=== PATIENT | female | born 1980 | race Caucasian/White ===

== ENCOUNTER 2022-03-19 13:41 | Emergency (ER) | payer BC, OTHER ==
--- OUTSIDE RECORDS SUMMARY | 2022-03-19 13:47 | XMS REPORT | Continuity of Care Document ---
:1980 Author Organization [facility] t Address [address] [place] [address] Care Team Providers Name Role Phone Demarcus Soler DO Primary Care Physician Sachi SCHMITZ, Holley Mejia Attending Clinician MAGGIE Attending Clinician Unavailable Maxine Attending Clinician Unavailable MAGGIE Admitting Clinician Unavailable Shaheen_Roger Admitting Clinician Unavailable Payers Payer Name Policy Type Policy Number Effective Date Expiration Date S ource [place] [id number] 2019 00:00:00 AETNA [id number] 2018 00:00:00 Problems Condition Condition Condition Status Onset Resolution Last Treating Co mments Source Name Details Category Date Date Treatment Clinician Date Depressive Depressive Problem Active [facility] disorder Disorder 6-11 da 00:00: Medical 00 Group History of History of Problem Active [facility] endometrio Endometrio 6-11 da sis sis 00:00: Medical 00 Group No known No known Disease Metho di active active st problems problems Hospit a l Allergies, Adverse Reactions, Alerts Allergy Allergy Status Severity Reaction(s) Onset Inactive Treating Comm ents Source Name Type Date Date Clinician Gluten Propensi Active Other (See Autoimmun M ethodi ty to Comments) 2-[address] adverse 00:00: Hospita reaction 00 l s to drug Codeine Propensi Active [facility] ty to 9-15 st adverse 00:00: Hospita reaction 00 l s to drug Codeine Allergy Active [facility] Gluten Allergy Active [facility] Family History Family Member Diagnosis Comments Start Date Stop Date Source Other [facility] Hy[facility] Natural mother Diabetes [facility] Natural mother Hypertension [facility] Social History Social Habit Start Date Stop Date Quantity Comments Source Alcohol intake 2021-11-14 2021-11-14 Current [facility] 00:00:00 00:00:00 non-drinker of Hospital alcohol (finding) Tobacco use and 2016-02-09 2016-02-09 Smokeless tobacco [facility] exposure 00:00:00 00:00:00 non-user Hospital Sex Assigned At [birth year] [facility] 00:[facility] 00:00:00 Hospital Smoking Status Start Date Stop Date Source Never smoked tobacco [facility] Medications Ordered Filled Start Stop Current Ordering Indication Dosage Frequency Signature Comments Components Source Medication Medication Date Date Medication? Clinician (SIG) Name Name meloxicam 2021- No 15mg QD Take 1 Metho di (Mobic) 15 11-14-20 tablet (15 st mg tablet 00:00: 04:59 mg total) Ho spita 00 :00 by mouth l daily for 90 days. methylPREDN 2021- No follow Met hodi ISolone 11-14- package st (MEDROL 00:00: 04:59 directions Hos manuel DOSEPAK) 4 00 :00 l mg tablet meloxicam 2021- No 15mg QD Take 1 Metho di (Mobic) 15 -21 07-26 tablet (15 st mg tablet 00:00: 05:59 mg total) [facility] 00 :00 by mouth l daily. sertraline Yes [facility] (ZOLOFT) 50 7-18 st MG tablet 00:00: Hospita 00 l sertraline sertraline No sertraline [facility] 100 mg 100 mg 100 mg da tablet Take tablet Take tablet Medical 1 tablet 1 tablet Take 1 Group every day every day tablet by oral by oral every day route as route as by oral directed directed route as for 30 for 30 directed days. days. for 30 days. Vital Signs Vital Name Observation Time Observation Value Comments Source BP Diastolic 2020-02-08 00:00:00 71 mm[Hg] [facility] Height 2020-02-08 00:00:00 67 [in_i] [facility] BMI (Body Mass 2020-02-08 00:00:00 29.6 kg/m2 [facility] Medical Index) Group BP Systolic 2020-02-08 00:00:00 103 mm[Hg] [facility] Body Weight 2020-02-08 00:00:00 188.8 [lb_av] [facility] BP Diastolic 2020-01-18 00:00:00 66 mm[Hg] [facility] Height 2020-01-18 00:00:00 67 [in_i] [facility] BMI (Body Mass 2020-01-18 00:00:00 29 kg/m2 [facility] Medical Index) Group BP Systolic 2020-01-18 00:00:00 107 mm[Hg] [facility] Body Weight 2020-01-18 00:00:00 185 [lb_av] [facility] BMI (Body Mass 2019-12-28 00:00:00 28.7 kg/m2 [facility] Medical Index) Group BP Systolic 2019-12-28 00:00:00 106 mm[Hg] [facility] Body Weight 2019-12-28 00:00:00 183 [lb_av] [facility] BP Diastolic 2019-12-28 00:00:00 66 mm[Hg] [facility] Height 2019-12-28 00:00:00 67 [in_i] [facility] BP Diastolic 2019-12-01 00:00:00 71 mm[Hg] [facility] Height 2019-12-01 00:00:00 67 [in_i] [facility] BMI (Body Mass 2019-12-01 00:00:00 26.3 kg/m2 [facility] Medical Index) Group BP Systolic 2019-12-01 00:00:00 114 mm[Hg] [facility] Body Weight 2019-12-01 00:00:00 167.7 [lb_av] [facility] BP Diastolic 2018-12-16 00:00:00 70 mm[Hg] [facility] Height 2018-12-16 00:00:00 67 [in_i] [facility] BMI (Body Mass 2018-12-16 00:00:00 28.8 kg/m2 [facility] Medical Index) Group BP Systolic 2018-12-16 00:00:00 104 mm[Hg] [facility] Body Weight 2018-12-16 00:00:00 184 [lb_av] [facility] BP Diastolic 2018-11-04 00:00:00 71 mm[Hg] [facility] Height 2018-11-04 00:00:00 67 [in_i] [facility] BMI (Body Mass 2018-11-04 00:00:00 28 kg/m2 [facility] Medical Index) Group BP Systolic 2018-11-04 00:00:00 114 mm[Hg] [facility] Body Weight 2018-11-04 00:00:00 179 [facility]lb_av] [facility] Body height 2021-11-14 20:23:00 170.2 cm [facility] Body weight 2021-11-14 20:23:00 92.987 kg [facility] BMI 2021-11-14 20:23:00 32.11 kg/m2 [facility] Procedures Procedure Date / Time Performed Performing Clinician Sour e XR KNEE 4+ VW RIGHT 2021-11-14 20:24:49 Holley Karimi [facility], transvaginal 2019-12-01 00:00:00 [facility], transvaginal 2018-11-04 00:00:00 [facility] Tubal Ligation [facility]end[facility] Dilation and Curettage [facility] Plan of Care Planned Activity Planned Date Details Comments Source Future Scheduled 2022-03-19 HEPATITIS B [facility] Test 13:46:35 VACCINES (1 of 3 - 3-dose series) [code = HEPATITIS B VACCINES (1 of 3 - 3-dose series)] Future Scheduled 2022-03-19 COVID[facility] 13:46:35 (#1) [code = COVID-19 VACCINE (#1)] Future Scheduled 2022-03-19 Hepatitis C [facility] Test 13:46:35 screening (procedure) [code = 827294229] Future Scheduled 2022-03-19 Screening for [facility] Test 13:46:35 malignant neoplasm of cervix (procedure) [code = 542285961] Future Scheduled 2022-03-19 BREAST CANCER [facility] Test 13:46:35 SCREENING [code = BREAST CANCER SCREENING] Future Scheduled 2022-03-19 INFLUENZA VACCINE [facility] Test 13:46:35 [code = INFLUENZA VACCINE] Encounters Start End Encounter Admission Attending Care Care Encounter Source Date/Time Date/Time Type Type Clinicians Facility Department ID 2021-11-14 2021-11-14 Office Rich, .2.840.1 [id number] [facility] 15:30:00 15:39:08 Visit Holley Mejia 86907.1.[address] 3.430.2.7 Hospit a .3.608479 l .8 2021-11-14 2021-11-14 Travel 1.2.840.1 1.2.733.545 [id number] [facility] 00:00:00 00:00:[address] 3.430.2.7 0.2.7.3.698 Ho spita .3.959904 084.8 l .8 2021-11-14 2021-11-14 Outpatient [facility] [id number] [place] 00:00:00 00:00:00 [place] [address] 2021-11-14 2021-11-14 Outpatient [facility] [id number] [place] 00:00:00 00:00:00 [place] [address] 2021-10-20 2021-10-20 Travel 1.2.840.1 1.2.709.933 [id number] [facility] 00:00:00 00:00:[address] 3.430.2.7 0.2.7.3.698 Ho spita .3.271997 084.8 l .8 2021-06-212021-06-21 Outpatient [facility] 970 [place] 08:13:00 08:13:00 SSA [facility] Program 2021-01-04 2021-01-04 Outpatient [facility] [id number] [place] 05:55:00 05:55:00 [facility] 2020-11-25 2020-11-25 Outpatient [facility] [id number] [place] 03:34:00 03:34:00 0702 [facility] 2020-11-16 2020-11-16 Outpatient [facility] [id number] [place] 01:38:00 01:38:00 0623 [facility] 2020-10-13 2020-10-13 Outpatient [facility] [id number] [place] 01:03:00 01:03:00 0520 [facility] 2020-08-09 2020-08-09 Outpatient [facility] [id number] 00:00:00 00:00:00 [place] [address] 2020-07-21 2020-07-21 Outpatient [facility] [id number] [address] [place] [address] 00:00:00 00:00:00 H[facility] [address] 2020-05-02 2020-05-02 Outpatient [facility] [id number] [place] 01:03:00 01:03:00 1207 [facility] 2020-04-13 2020-04-13 Outpatient [facility] [id number] [place] 02:43:00 02:43:00 1118 [facility] 2020-04-13 2020-04-13 Outpatient [facility] [id number] [place] 02:43:00 02:43:00 1126 [facility] 2020-03-29 2020-03-29 Outpatient [facility] MMG [id number] [place] 03:42:00 03:42:00 1104 [facility] 2020-03-28 2020-03-28 Outpatient [facility] MMG [id number] [place] 01:04:00 01:04:00 1102 [facility] 2020-02-23 2020-02-23 Outpatient G[facility] MMG [id number] [place] 10:32:00 10:32:00 1008 [facility] 2020-02-21 2020-02-21 Outpatient G_[facility] MMG [id number] [place] 11:02:00 11:02:00 0927 [facility] 2020-02-10 2020-02-10 Outpatient [facility] MMG [id number] [place] 01:07:00 01:07:00 0921 Medical Group 2020-02-08 2020-02-08 Outpatient [facility] [id number] [place] 11:44:00 11:44:00 0914 Medical Group 2020-02-08 2020-02-08 Vandana MMG [place] - [id number] [facility] 00:00:00 00:00:00 Olvin Lundy [facility] shane MD: [address] [address] , Ph. [phone] 2020-02-02 2020-02-02 Outpatient [facility] MMG [id number] [place] 10:54:00 10:54:00 0908 Medical Group 2020-01-18 2020-01-18 Outpatient [facility] MMG [id number] [place] 07:27:00 07:27:00 0824 Medical Group 2020-01-18 2020-01-18 Vandana MMG [place] - [id number] [facility] 00:00:00 00:00:00 Shira Cerna Medicsanty lynn MD: [address] [address] , Ph. [phone] 2020-01-13 2020-01-13 Outpatient [facility] MMG [id number] [place] 10:02:00 10:02:00 0819 Medical Group 2019-12-28 2019-12-28 Outpatient [facility] MM[facility] MMG [id number] [place] 11:09:00 11:09:00 0803 [facility] 2019-12-28 2019-12-28 Vandana MM [place] - [id number] [facility] 00:00:00 00:00:00 Shira Cerna MD: [address] [address] , Ph. [phone] 2019-12-21 2019-12-21 Outpatient [facility] MMG [id number] [place] 11:09:00 11:09:00 0727 [facility] 2019-12-01 2019-12-01 Outpatient G_[facility] MMG MMG [id number] [place] 03:33:00 03:33:00 0707 [facility] 2019-12-01 2019-12-01 Vandana MM [place] - [id number] [facility] 00:00:00 00:00:00 Shira Cerna MD: [address] [address] , Ph. [phone] 2019-04-27 2019-04-27 Outpatient G_[facility] MMG MMG [id number] 2019 [place] 11:07:00 11:07:00 0706 [facility] 2018-12-16 2018-12-16 Vandana MM [place] - [id number] [facility] 00:00:00 00:00:00 Shira Cerna MD: [address] [address] , Ph. [phone] 2018-11-04 2018-11-04 Vandana MM [place] - [id number] [facility] 00:00:00 00:00:00 Shira Cerna MD: [address] [address] , Ph. [phone] Results Test Description Test Time Test Comments Results Result Comments Source mlevelv 2019-12-31 06:00:00 Test Item Value Reference Range Interpretation Comme nts Surgical pathology study (test code = 34031-4) see separate patholo gy report. [employer] W Auto Differential panel - [id number] 09:20:00 Test Item Value Reference Range Interpretation Comments white blood count (test code = 5.3 K/uL 4.0-11.5 white blood count) red blood count (test code = red 4.45 M/uL 3.80-5.20 blood count) hemoglobin (test code = 13.9 g/dL 10.5-15.7 hemoglobin) hematocrit (test code = 41.1 % 34.0-50.0 hematocrit) MCV [Entitic volume] (test code = 92.4 fL 86-100 13407-6) mean corpuscular hemoglobin (test 31.2 pg 26.2-33.4 code = mean corpuscular hemoglobin) mean corpuscular HGB conc (test 33.8 g/dL 30-34 code = mean corpuscular HGB conc) red cell distribution width (test 12.3 % 12.0-15.5 code = red cell distribution width) platelet count (test code = 222 K/uL 165-450 platelet count) mean platelet volume (test code = 10.2 fL 9.4-12.6 mean platelet volume) Segmented neutrophils/100 65.0 % 44.4-80.1 leukocytes in Blood (test code = 71788-8) Immature granulocytes [#/volume] 0.0 K/uL 0.0-0.03 in Blood (test code = 15876-8) lymphocyte% (test code = 25.9 % 10.0-50.0 lymphocyte%) mono % (test code = mono %) 7.2 % 3.6-12.0 eos % (test code = eos %) 1.3 % 0.0-5.4 Basophils/100 leukocytes in 0.4 % 0.1-1.2 Unspecified specimen (test code = 72833-2) Band form neutrophils [#/volume] 3.42 K/uL 1.56-6.13 in Blood (test code = 98734-0) Lymphocytes [#/volume] in 1.4 K/uL 1.18-3.74 Unspecified specimen by Automated count (test code = 40979-7) mono # (test code = mono #) 0.38 K/uL 0.24-0.86 eos # (test code = eos #) 0.07 K/uL 0.04-0.36 basophil # (test code = basophil 0.02 K/uL 0.01-0.08 #) NRBC% (test code = NRBC%) 0 /100 WBC 0-0.2 NRBC# (test code = NRBC#) 0 K/uL [facility] unspecified - [id number] 09:20:00NeutrophilsBandLymphocyteMonocyteNucleated Red Blood CellPlatelet EstimateMataBaptist Memorial Hospitalpap, LB + [id number] 00:00:00 Test Item Value Reference Range Interpretation Comments HPV type-detect 3.0 by next gen not detected sequencing (reflex to HPV-16 risk assessment status) (test code = HPV type-detect 3.0 by next gen sequencing (reflex to HPV-16 risk assessment status)) General categories normal [interpretation] of Cervical or vaginal smear or scraping by Cyto stain (test code = 43163-6) [facility]
[2022-03-19] MEDS ORDERED: IPRATROPIUM BROM 0.5MG/2.5ML ONE (14:35)
[2022-03-19] MEDS ORDERED: ALBUTEROL 2.5 MG/3 ML NEB SOL ONE (14:35)
[2022-03-19] MEDS ORDERED: BUDESONIDE 0.25 MG/2 ML NEB IH ONE (15:00)
[2022-03-19 15:16] LABS: Absolute Lymphocytes (CBC) 2.7 K/uL (0.7-4.9); Hematocrit 40.2 % (36.0-45.0); Lymphocytes % 38.2 % (15.3-44.8); MCV 91.1 fL (80-100); MPV 7.8 fL (7.6-11.3); RBC Red Blood Cell Count 4.42 M/uL (3.86-4.86)
[2022-03-19 15:24] LABS: Potassium 3.1 mmol/L (3.5-5.1)
--- NOTE | 2022-03-19 15:54 | RAD REPORT ---
EXAM DESCRIPTION: Regino Wallace (2 Views)03/19/2022 3:48 pm CLINICAL HISTORY: Cough COMPARISON: None FINDINGS: The lungs appear clear of acute infiltrate. The heart is normal size IMPRESSION: No acute abnormalities displayed
--- NOTE | 2022-03-19 16:21 | ER ---
Nurse's Notes [facility] Name: Ana Patel Age: 41 yrs Sex: Female : 1980 Arrival Date: 03/19/2022 Time: 13:46 Bed 10 Private MD: Demarcus Soler Diagnosis: Cough Presentation: 03/19 14:13 Chief complaint: Patient states: productive cough that started about five weeks ago. kr3 went to urgent care 2 weeks ago and was given antibiotics and steroids that she completed. She is still coughing with congestion and also becomes SOB during coughing fits. Coronavirus screen: Vaccine status: Patient reports receiving the 2nd dose of the covid vaccine. Client denies travel out of the [place] in the last 14 days. Ebola Screen: Patient denies travel to an Ebola-affected area in the 21 days before illness onset. Initial Sepsis Screen: Does the patient meet any 2 criteria? No. Patient's initial sepsis screen is negative. Does the patient have a suspected source of infection? Yes: Productive cough/pneumonia. Risk Assessment: Do you want to hurt yourself or someone else? Patient reports no desire to harm self or others. Onset of symptoms was February 12, 2022. 14:13 Method Of Arrival: Ambulatory kr3 14:13 Acuity: JOSE 4 kr3 Triage Assessment: 14:21 General: Appears in no apparent distress. uncomfortable, Behavior is calm, cooperative, kr3 appropriate for age. Pain:. 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 - Social history:: Smoking status: Patient denies any tobacco usage or history of. Screenin:34 Abuse screen: Denies threats or abuse. Nutritional screening: No deficits noted. kr3 Tuberculosis screening: No symptoms or risk factors identified. Fall Risk IV access (20 points). Total Sullivan Fall Scale indicates No Risk (0-24 pts). Assessment: 15:15 Reassessment: No changes from previously documented assessment. Patient and/or family kr3 updated on plan of care and expected duration. Pain level reassessed. Patient is alert, oriented x 3, equal unlabored respirations, skin warm/dry/pink. 16:32 Reassessment: No changes from previously documented assessment. Patient and/or family kr3 updated on plan of care and expected duration. Pain level reassessed. Patient is alert, oriented x 3, equal unlabored respirations, skin warm/dry/pink. 16:33 General:. kr3 Vital Signs: 14:13 BP 132 / 59; Pulse 79; Resp 18; Temp 98.0; Pulse Ox 100% ; Weight 92.99 kg; Height 5 kr3 ft. 7 in. (170.18 cm); Pain 0/10; 15:15 BP 130 / 72; Pulse 101; Resp 20; Pulse Ox 100% on R/A; kr3 16:32 BP 126 / 65; Pulse 91; Resp 18; Pulse Ox 98% on R/A; kr3 14:13 Body Mass Index 32.11 (92.99 kg, 170.18 cm) kr3 ED Course: 13:46 Patient arrived in ED. rg4 13:46 Demarcus Soler DO is Private Physician. rg4 14:02 Ran Knox is PHCP. jl9 14:02 Mao Lunsford MD is Attending Physician. jl9 14:05 Diane Herrera, ADINA is Primary Nurse. kr3 14:15 Arm band placed on right wrist. Patient placed in an exam room, on a stretcher. kr3 14:17 Triage completed. kr3 14:30 Bed in low position. Call light in reach. Side rails up X 1. kr3 15:05 CBC with Diff Sent. zm 15:05 BMP Sent. zm 15:05 SARS-COV-2 RT PCR (Document "Date of Onset" if Symptomatic) Sent. zm 15:05 Flu Sent. zm 15:05 Inserted saline lock: 22 gauge in right antecubital area, using aseptic technique. zm Blood collected. 15:50 XRAY Chest Pa And Lat (2 Views) In Process Unspecified. EDMS 16:34 No provider procedures requiring assistance completed. IV discontinued, intact, kr3 bleeding controlled, No redness/swelling at site. Pressure dressing applied. Administered Medications: 14:39 Drug: Albuterol - atroVENT (ipratropium) (3:1) (2.5 mg - 0.5 mg) 6 ml Route: Nebulizer; kr3 16:21 Follow up: Response: No adverse reaction kr3 15:31 Drug: Pulmicort 0.25 mg/2 mL 0.25 mg Route: Inhalation; kr3 16:21 Follow up: Response: No adverse reaction kr3 16:26 Drug: Potassium Effervescent Tablet 50 mEq Route: PO; kr3 16:36 Follow up: Response: No adverse reaction kr3 Medication: 16:35 VIS not applicable for this client. kr3 Outcome: 16:21 Discharge ordered by MD. cespedes 16:34 Discharged to home ambulatory. kr3 16:34 Condition: stable 16:34 Discharge instructions given to patient, Instructed on discharge instructions, follow up and referral plans. medication usage, Demonstrated understanding of instructions, follow-up care, medications, Prescriptions given X 2. 16:36 Patient left the ED. kr3 Signatures: Dispatcher [employer] Miroslava Persaud Zaina zm Linares, John jl9 Diane Herrera RN RN kr3 Corrections: (The following items were deleted from the chart) 14:21 14:17 PMHx: hysterectomy; kr3 kr3 14:21 14:17 PMHx: cholecestomy; kr3 kr3 14:21 14:17 PMHx: cholecystectomy; kr3 kr3
--- NOTE | 2022-03-19 16:21 | EDPHYS ---
Physician Documentation [facility] Name: Ana Patel Age: 41 yrs Sex: Female : 1980 Arrival Date: 03/19/2022 Time: 13:46 Bed 10 Private MD: Demarcus Soelr ED Physician Mao Lunsford HPI: 03/19 16:19 This 41 yrs old Female presents to ER via Ambulatory with complaints of jl9 Cough. Patient reports finishing a course of abx a couple of weeks ago but she still has an intermittent cough. . 16:19 The patient or guardian reports cough. Onset: The symptoms/episode began/occurred 5 jl9 week(s) ago. Modifying factors: The symptoms are alleviated by nothing, the symptoms are aggravated by nothing. The patient has experienced a previous episode. 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 - Social history:: Smoking status: Patient denies any tobacco usage or history of. ROS: 16:19 Constitutional: Negative for fever, chills, and weight loss, Eyes: Negative for injury, jl9 pain, redness, and discharge, ENT: Negative for injury, pain, and discharge, Neck: Negative for injury, pain, and swelling, Cardiovascular: Negative for chest pain, palpitations, and edema. 16:19 Abdomen/GI: Negative for abdominal pain, nausea, vomiting, diarrhea, and constipation, Back: Negative for injury and pain, : Negative for injury, bleeding, discharge, and swelling, MS/Extremity: Negative for injury and deformity, Skin: Negative for injury, rash, and discoloration, Neuro: Negative for headache, weakness, numbness, tingling, and seizure, Psych: Negative for depression, anxiety, suicide ideation, homicidal ideation, and hallucinations, Allergy/Immunology: Negative for hives, rash, and allergies, Endocrine: Negative for neck swelling, polydipsia, polyuria, polyphagia, and marked weight changes, Hematologic/Lymphatic: Negative for swollen nodes, abnormal bleeding, and unusual bruising. 16:19 Respiratory: Positive for cough. Exam: 16:20 Constitutional: This is a well developed, well nourished patient who is awake, alert, jl9 and in no acute distress. Head/Face: Normocephalic, atraumatic. Eyes: Pupils equal round and reactive to light, extra-ocular motions intact. Lids and lashes normal. Conjunctiva and sclera are non-icteric and not injected. Cornea within normal limits. Periorbital areas with no swelling, redness, or edema. ENT: Mucous membranes moist. Neck: Trachea midline, no thyromegaly or masses palpated, and no cervical lymphadenopathy. Supple, full range of motion without nuchal rigidity, or vertebral point tenderness. No Meningismus. Chest/axilla: Normal chest wall appearance and motion. Nontender with no deformity. No lesions are appreciated. Cardiovascular: Regular rate and rhythm with a normal S1 and S2. No gallops, murmurs, or rubs. Normal PMI, no JVD. No pulse deficits. 16:20 Abdomen/GI: Soft, non-tender, with normal bowel sounds. No distension or tympany. No guarding or rebound. No evidence of tenderness throughout. Back: No spinal tenderness. No costovertebral tenderness. Full range of motion. Skin: Warm, dry with normal turgor. Normal color with no rashes, no lesions, and no evidence of cellulitis. MS/ Extremity: Pulses equal, no cyanosis. Neurovascular intact. Full, normal range of motion. Neuro: Awake and alert, GCS 15, oriented to person, place, time, and situation. Cranial nerves II-XII grossly intact. Motor strength 5/5 in all extremities. Sensory grossly intact. Cerebellar exam normal. Normal gait. Psych: Awake, alert, with orientation to person, place and time. Behavior, mood, and affect are within normal limits. 16:20 Respiratory: mild respiratory distress is noted, Respirations: normal, Breath sounds: bronchial sounds. Vital Signs: 14:13 BP 132 / 59; Pulse 79; Resp 18; Temp 98.0; Pulse Ox 100% ; Weight 92.99 kg; Height 5 kr3 ft. 7 in. (170.18 cm); Pain 0/10; 15:15 BP 130 / 72; Pulse 101; Resp 20; Pulse Ox 100% on R/A; kr3 16:32 BP 126 / 65; Pulse 91; Resp 18; Pulse Ox 98% on R/A; kr3 14:13 Body Mass Index 32.11 (92.99 kg, 170.18 cm) kr3 MDM: 14:06 Patient medically screened. jl9 16:20 Differential Diagnosis: Bronchitis Influenza Upper Respiratory Infection. Data jl9 reviewed: vital signs, nurses notes. Counseling: I had a detailed discussion with the patient and/or guardian regarding: the historical points, exam findings, and any diagnostic results supporting the discharge/admit diagnosis, radiology results, the need for outpatient follow up, to return to the emergency department if symptoms worsen or persist or if there are any questions or concerns that arise at home. Response to treatment: the patient's symptoms have markedly improved after treatment. 03/19 14:03 Order name: Flu; Complete Time: 15:21 03/19 14:03 Order name: SARS-COV-2 RT PCR (Document "Date of Onset" if Symptomatic); Complete Time: jl9 16:16 03/19 14:22 Order name: XRAY Chest Pa And Lat (2 Views); Complete Time: 15:58 9 03/19 14:48 Order name: BMP; Complete Time: 15:58 9 03/19 14:48 Order name: CBC with Diff; Complete Time: 15:21 9 03/19 14:48 Order name: IV Saline Lock; Complete Time: 15:05 jl9 Administered Medications: 14:39 Drug: Albuterol - atroVENT (ipratropium) (3:1) (2.5 mg - 0.5 mg) 6 ml Route: Nebulizer; kr3 16:21 Follow up: Response: No adverse reaction kr3 15:31 Drug: Pulmicort 0.25 mg/2 mL 0.25 mg Route: Inhalation; kr3 16:21 Follow up: Response: No adverse reaction kr3 16:26 Drug: Potassium Effervescent Tablet 50 mEq Route: PO; kr3 16:36 Follow up: Response: No adverse reaction kr3 Disposition Summary: 03/19/22 16:21 Discharge Ordered Location: Home jl9 Condition: Stable jl9 Diagnosis - Cough jl9 Followup: jl9 - With: Private Physician - When: 1 - 2 days - Reason: Recheck today's complaints, Continuance of care, Re-evaluation by your physician Discharge Instructions: - Discharge Summary Sheet jl9 - Cough, Adult, Otsz-[id number] jl9 Forms: - Medication Reconciliation Form jl9 - Thank You Letter jl9 - Antibiotic Education jl9 - Prescription Opioid Use jl9 Prescriptions: - albuterol sulfate 90 mcg/actuation Inhalation HFA aerosol inhaler - inhale 2 puff by INHALATION route every 6 hours As needed; 18 gram; Refills: 0, jl9 Product Selection Permitted - Medrol (Alexsander) 4 mg Oral Tablets, Dose Pack - take 1 tablet by ORAL route as directed - follow package instructions; 1 jl9 packet; Refills: 0, Product Selection Permitted Addendum: 03/22/2022 06:29 Co-signature as Attending Physician, Mao Lunsford MD. r n Signatures: Dispatcher [employer] EDMS Mao Lunsford MD MD rn Linares, John jl9 Diane Herrera RN RN kr3 Corrections: (The following items were deleted from the chart) 03/19 14:21 14:17 PMHx: hysterectomy; kr3 kr3 14:21 14:17 PMHx: cholecestomy; kr3 kr3 14:21 14:17 PMHx: cholecystectomy; kr3 kr3
[2022-03-19] MEDS ORDERED: POTASSIUM CL SA 10 MEQ TAB PO ONE (16:24)
[2022-03-19 17:39] VITALS: TEMP 98
[2022-03-19 17:41] VITALS: BP 126/65; O2SAT 98
== END 2022-03-19 16:36 | disposition home or self-care (01) ==
LOC: ER 13:41
DX: R05.9 Cough, unspecified (principal); Z20.822 Contact with and (suspected) exposure to COVID-19; Z88.5 Allergy status to narcotic agent
CPT/HCPCS: 85025; 80048; 36415; 87804 ×2; 71046; 94640; 99284; U0003; J7634

== ENCOUNTER 2023-11-25 12:21 | Emergency (ER) | payer BC, OTHER ==
[2023-11-25] MEDS ORDERED: PROMETHAZINE INJ 25 MG/ML AMP ONE (13:23)
[2023-11-25] MEDS ORDERED: FENTANYL CITR 100 MCG/2 ML ONE (13:23)
[2023-11-25] MEDS ORDERED: NA CHLORIDE 0.9% 1,000 ML ONE (13:24)
[2023-11-25 13:38] LABS: Absolute Eosinophils 0.1 K/uL (0-0.5); Absolute Lymphocytes (CBC) 1.6 K/uL (0.7-4.9); Absolute Monocytes 0.3 K/uL (0.1-1.3); Absolute Neutrophil 2.7 K/uL (1.8-8.0); Basophils % 0.4 % (0-1.3); Eosinophils % 1.6 % (0-4.4); Hematocrit 38.1 % (36.0-45.0); Lymphocytes % 34.8 % (15.3-44.8); MCH 31.9 pg (27.0-35.0); MCHC 34.1 g/dL (32.0-36.0); MCV 93.6 fL (80-100); MPV 8.6 fL (7.6-11.3); Monocytes % 5.6 % (3.3-12.3); Neutrophils % 57.6 % (41.7-73.7); Nucleated Red Blood Cells % 0.1 % (0-0); Platelets 210 thou/uL (152-406); RBC Red Blood Cell Count 4.07 M/uL (3.86-4.86); Red Cell Distribution Width 13.2 % (12.1-15.2)
[2023-11-25 13:49] LABS: Albumin 3.7 g/dL (3.4-5.0); Albumin/Globulin Ratio 1.2 (1.1-1.8); Anion Gap 5.8 mEq/L (5.0-15.0); Bilirubin Total 0.5 mg/dL (0.2-1.0); Globulin 3.2 g/dL (2.3-3.5); Potassium 3.8 mEq/L (3.5-5.1); Protein, Total 6.9 g/dL (6.4-8.2)
[2023-11-25 14:36] LABS: Specific Gravity 1.007 (1.005-1.030)
[2023-11-25 14:43] LABS: Specific Gravity 1.007 (1.005-1.030); Urine Bilirubin NEGATIVE (Negative); Urine Blood Negative (Negative); Urine Clarity Clear (Clear); Urine Color Colorless (Yellow); Urine Glucose NEGATIVE (Negative); Urine Ketones NEGATIVE (Negative); Urine Microscopic Reflex YN NO UMIC; Urine Nitrite NEGATIVE (Negative); Urine Protein NEGATIVE (Negative); Urine Urobilinogen Normal (Normal)
--- NOTE | 2023-11-25 15:09 | RAD REPORT ---
EXAM DESCRIPTION: CTAbdomen Pelvis W Contrast - 11/25/2023 2:39 pm CLINICAL HISTORY: Abdominal pain. Abd pain;Constipation COMPARISON: <Comparisons> TECHNIQUE: Biphasic CT imaging of the abdomen and pelvis was performed with 100 ml non-ionic IV cont rast. All CT scans are performed using dose optimization technique as appropriate and may include automated exposure control or mA/KV adjustment according to patient size. FINDINGS: The lung bases are clear. The liver, spleen, pancreas, adrenal glands and kidneys are within normal limits. No bowel obstruction, free air, free fluid or abscess. There is a mild inflamed appearance to the ter diane ileum and portion of the ascending colon to the level of the hepatic flexure. Moderate stool re tention. Appendectomy. No evidence of significant lymphadenopathy. No suspicious bony findings. IMPRESSION: Mildly inflamed appearance of terminal ileum and ascending colon may indicate inflammato ry bowel disease or infection. Moderate stool retention is seen throughout the colon.
[2023-11-25] MEDS ORDERED: LACTULOSE 20 GM/30 ML UCUP ONE (15:14)
--- NOTE | 2023-11-25 16:10 | ER ---
Nurse's Notes [facility] Name: Ana Patel Age: 43 yrs Sex: Female : 1980 Arrival Date: 11/25/2023 Time: 12:21 Bed 15 Private MD: Diagnosis: Slow transit constipation Presentation: 11/24 12:29 Chief complaint: Patient states: Abdominal pain off/on for over 2 weeks. No BM for 6 ll1 days. Saw her GI doctor. Coronavirus screen: Client denies travel out of the [place] in the last 14 days. At this time, the client does not indicate any symptoms associated with coronavirus-19. Ebola Screen: Patient denies travel to an Ebola-affected area in the 21 days before illness onset. Initial Sepsis Screen: Does the patient meet any 2 criteria? No. Patient's initial sepsis screen is negative. Does the patient have a suspected source of infection? No. Patient's initial sepsis screen is negative. Risk Assessment: Do you want to hurt yourself or someone else? Patient reports no desire to harm self or others. Onset of symptoms was November 09, 2023. 12:29 Method Of Arrival: Ambulatory 1 12:29 Acuity: JOSE 3 ll1 Triage Assessment: 12:34 General: Appears uncomfortable, ill, Behavior is calm, cooperative, appropriate for 1 age. Pain: Complains of pain in abdomen Quality of pain is described as aching, crampy. GI: Reports lower abdominal pain, upper abdominal pain, constipation, cramping. 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 - Infectious Disease History:: Denies. - Social history:: Smoking status: Patient denies any tobacco usage or history of. Screenin:38 [facility] ED Fall Risk Assessment (Adult) History of falling in the last 3 months, db including since admission No falls in past 3 months (0 pts) Confusion or Disorientation No (0 pts) Intoxicated or Sedated No (0 pts) Impaired Gait No (0 pts) Mobility Assist Device Used No (0 pt) Altered Elimination No (0 pt) Score/Fall Risk Level 0 - 2 = Low Risk Oriented to surroundings, Maintained a safe environment. Abuse screen: Denies threats or abuse. Denies injuries from another. Nutritional screening: No deficits noted. Tuberculosis screening: No symptoms or risk factors identified. Assessment: 13:20 Reassessment: Patient appears in no apparent distress at this time. Patient and/or db family updated on plan of care and expected duration. Pain level reassessed. Patient is alert, oriented x 3, equal unlabored respirations, skin warm/dry/pink. General: Appears in no apparent distress. uncomfortable, Behavior is cooperative. Pain: Complains of pain in abdomen. Neuro: Level of Consciousness is awake, alert, obeys commands, Oriented to person, place, time, situation. Cardiovascular: No deficits noted. Respiratory: No deficits noted. Airway is patent Respiratory effort is even, unlabored, Respiratory pattern is regular, symmetrical. GI: Bowel sounds present X 4 quads. Abd is soft Reports lower abdominal pain. 13:47 Reassessment: Patient states feeling better. db Vital Signs: 12:29 BP 116 / 67; Pulse 79; Resp 17; Temp 97.9; Pulse Ox 100% ; Weight 61.23 kg; Height 5 ll1 ft. 7 in. ; Pain 7/10; 13:30 BP 98 / 68; Pulse 69; Resp 16; Pulse Ox 100% ; db 14:15 BP 94 / 58; Pulse 63; Resp 18; Pulse Ox 100% on R/A; db 16:12 BP 95 / 56; Pulse 59; Resp 18; Pulse Ox 100% on R/A; db 12:29 Body Mass Index 21.14 (61.23 kg, 170.18 cm) ll1 12:29 Pain Scale: Adult ll1 ED Course: 12:25 Patient arrived in ED. mg5 12:27 Marisela Gallegos PA-C is PHCP. sb4 12:27 Jerel Rosario MD is Attending Physician. sb4 12:31 Triage completed. ll1 12:31 Arm band placed on Patient placed in an exam room, on a stretcher. ll1 12:39 Warm blanket given. ll1 13:04 Lynnette Warner, ADINA is Primary Nurse. db 13:25 Inserted saline lock: 20 gauge in right antecubital area, using aseptic technique. db Blood collected. 14:22 Urine collected: clean catch specimen, clear. db 14:41 CT Abd/Pelvis - IV Contrast Only In Process Unspecified. EDMS 16:27 Patient has correct armband on for positive identification. Bed in low position. Call db light in reach. Side rails up X 1. Provided Education on: DISCHARGE AND FOLLOWUP. Pulse ox on. NIBP on. 16:27 No provider procedures requiring assistance completed. IV discontinued, intact, db bleeding controlled, No redness/swelling at site. Administered Medications: 13:30 Drug: NS 0.9% IV 1000 ml IV at 1 bolus Per protocol; 1000 mL bolus Route: IV; Rate: 1 db bolus; Site: right antecubital; 16:31 Follow up: Response: No adverse reaction; IV Status: Completed infusion; IV Intake: db 1000ml 13:30 Drug: fentaNYL (PF) IVP 50 mcg IVP once Route: IVP; Site: right antecubital; db 16:31 Follow up: Response: No adverse reaction db 13:30 Drug: Promethazine IVP 12.5 mg IVP once Route: IVP; Site: right antecubital; db 16:31 Follow up: Response: No adverse reaction db 15:38 Drug: Lactulose PO 20 grams 30 ml PO once Volume: 30 ml; Route: PO; db 16:31 Follow up: Response: No adverse reaction db Medication: 13:38 VIS not applicable for this client. db Intake: 16:31 IV: 1000ml; Total: 1000ml. db Outcome: 16:09 Discharge ordered by MD. murillo 16:27 Discharged to home ambulatory, with family, db 16:27 Condition: stable 16:27 Discharge instructions given to patient, Instructed on discharge instructions, follow up and referral plans. Prescriptions given X 1, 16:32 Patient left the ED. db Signatures: Dispatcher [employer] EDMS Lester Aguilar RN RN ll1 Lynnette Warner RN RN db Marisela Gallegos PA-C PA-C sb4 Noelle Spears mg5 Corrections: (The following items were deleted from the chart) 12:34 12:29 BP 116 / 67; Pulse 79bpm; Resp 17bpm; Pulse Ox 100%; 61.23 kg; Height 5 ft. 7 ll1 in.; BMI: 21.1; Pain 7/10, Adult; ll1
--- NOTE | 2023-11-25 16:10 | EDPHYS ---
Physician Documentation [facility] Name: Ana Patel Age: 43 yrs Sex: Female : 1980 Arrival Date: 11/25/2023 Time: 12:21 Bed 15 Private MD: Jerel Marie HPI: 11/24 12:41 This 43 yrs old Female presents to ER via Ambulatory with complaints of Abdominal Pain. sb4 12:41 The patient presents with abdominal pain in the lower abdomen. Onset: The sb4 symptoms/episode began/occurred at an unknown time, and became worse this morning. The symptoms do not radiate. Associated signs and symptoms: Pertinent positives: constipation, nausea. The symptoms are described as crampy. Modifying factors: The symptoms are alleviated by nothing, the symptoms are aggravated by nothing. The patient has not experienced similar symptoms in the past. The patient has been recently seen by a physician: a assembler type bar and segment, 3 day(s) ago, with similar presenting complaints, lab tests were done. no BM for 6 days. stopped wegovy 2 weeks ago. has tried several stool softeners, enemas, laxatives, drinking plenty of water, walking- no relief. is still passing gas, no vomiting. saw GI a few days ago for crohns/UC workup- has some results back but no official diagnosis. 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 - Infectious Disease History:: Denies. - Social history:: Smoking status: Patient denies any tobacco usage or history of. ROS: 12:43 Respiratory: Negative for shortness of breath, cough, wheezing, and pleuritic chest sb4 pain, 12:43 Abdomen/GI: Positive for abdominal pain, nausea, constipation, 12:43 All other systems are negative, Exam: 12:43 Head/Face: Normocephalic, atraumatic. Eyes: Extra-ocular motions intact. Periorbital sb4 areas with no swelling, redness, or edema. ENT: Mucous membranes moist. Cardiovascular: Regular rate and rhythm with a normal S1 and S2. Respiratory: Lungs have equal breath sounds bilaterally, clear to auscultation and percussion. No rales, rhonchi or wheezes noted. No increased work of breathing, no retractions or nasal flaring. Skin: Warm, dry with normal turgor. Normal color with no rashes, no lesions, and no evidence of cellulitis. MS/ Extremity: Pulses equal, no cyanosis. Neurovascular intact. Full, normal range of motion. 12:43 Constitutional: The patient appears alert, awake, in obvious pain, uncomfortable, 12:43 Abdomen/GI: Inspection: abdomen appears normal, Bowel sounds: diminished, in the right lower quadrant and left lower quadrant, Palpation: abdomen is soft and non-tender, Vital Signs: 12:29 BP 116 / 67; Pulse 79; Resp 17; Temp 97.9; Pulse Ox 100% ; Weight 61.23 kg; Height 5 ll1 ft. 7 in. ; Pain 7/10; 13:30 BP 98 / 68; Pulse 69; Resp 16; Pulse Ox 100% ; db 14:15 BP 94 / 58; Pulse 63; Resp 18; Pulse Ox 100% on R/A; db 16:12 BP 95 / 56; Pulse 59; Resp 18; Pulse Ox 100% on R/A; db 12:29 Body Mass Index 21.14 (61.23 kg, 170.18 cm) ll1 12:29 Pain Scale: Adult ll1 MDM: 12:32 Patient medically screened. sb4 16:09 Data reviewed: vital signs, nurses notes, lab test result(s), radiologic studies, and sb4 as a result, I will discharge patient. Counseling: I had a detailed discussion with the patient and/or guardian regarding the historical points, exam findings, and any diagnostic results supporting the discharge/admit diagnosis, lab results, radiology results, to return to the emergency department if symptoms worsen or persist or if there are any questions or concerns that arise at home. 11/24 12:40 Order name: CBC with Diff; Complete Time: 13:40 sb4 11/24 12:40 Order name: CMP; Complete Time: 13:50 sb4 11/24 12:40 Order name: Lipase; Complete Time: 13:50 sb4 11/24 12:40 Order name: Test, Urine; Complete Time: 14:44 sb4 11/24 12:40 Order name: Urinalysis w/ reflexes; Complete Time: 14:44 sb4 11/24 12:40 Order name: CT Abd/Pelvis - IV Contrast Only; Complete Time: 15:10 sb4 11/24 12:40 Order name: IV Saline Lock; Complete Time: 13:37 sb4 11/24 12:40 Order name: Labs collected and sent; Complete Time: 13:37 sb4 Administered Medications: 13:30 Drug: NS 0.9% IV 1000 ml IV at 1 bolus Per protocol; 1000 mL bolus Route: IV; Rate: 1 db bolus; Site: right antecubital; 16:31 Follow up: Response: No adverse reaction; IV Status: Completed infusion; IV Intake: db 1000ml 13:30 Drug: fentaNYL (PF) IVP 50 mcg IVP once Route: IVP; Site: right antecubital; db 16:31 Follow up: Response: No adverse reaction db 13:30 Drug: Promethazine IVP 12.5 mg IVP once Route: IVP; Site: right antecubital; db 16:31 Follow up: Response: No adverse reaction db 15:38 Drug: Lactulose PO 20 grams 30 ml PO once Volume: 30 ml; Route: PO; db 16:31 Follow up: Response: No adverse reaction db Disposition Summary: 11/25/23 16:09 Discharge Ordered Notes: Location: Home sb4 Problem: new sb4 Symptoms: are unchanged sb4 Condition: Stable sb4 Diagnosis - Slow transit constipation sb4 Followup: sb4 - With: Emergency Department - When: As needed - Reason: Trouble breathing, Worsening of condition Discharge Instructions: - Discharge Summary Sheet sb4 - Constipation, Adult, [id number] sb4 Forms: - Patient Portal Instructions sb4 - Leadership Thank You Letter sb4 Prescriptions: - Golytely [id number] -5.86 gram Oral Recon Soln - administer 240 milliliter ORAL route every 10 to 20 minutes until fecal sb4 effluent is clear; 4000 milliliter; Refills: 0, Product Selection Permitted Signatures: Dispatcher [employer] Lester Jang RN RN ll1 Lynnette Warner RN RN db Marisela Gallegos PA-C PA-C sb4
[2023-11-25 17:04] VITALS: TEMP 97.9; O2SAT 100
[2023-11-25 17:27] VITALS: BP 95/56
== END 2023-11-25 16:32 | disposition home or self-care (01) ==
LOC: ER 12:21
DX: K59.01 Slow transit constipation (principal); Z88.5 Allergy status to narcotic agent
CPT/HCPCS: 96361; 85025; 36415; 81025; 81003; 83690; 80053; 74177; 96375; 96374; 99284; Q9967; J2550; J3010; J7030